=== PATIENT | male | born 1960 | race Caucasian/White ===

== ENCOUNTER → 2020-10-14 09:26 | Outpatient (BNVA) | payer OTHER, SELFPAY | PROVIDERS: Visit Provider Urology ==

== ENCOUNTER 2022-12-14 10:56 | Outpatient (AMB) | payer OTHER, SELFPAY ==
--- NOTE | 2022-12-14 11:21 | A.OFFVIS_ITS ---
Intake Intake Visit Reasons: 2YR US(set) Intake Note: Patient is present for Follow Up Urology Med: Sildenafil Antibiotic Allergy: Penicillins Blood Thinner: none Pharmacy: [facility] Allergies penicillin V Allergy (Unknown, Verified 12/14/22 11:22) diarrhea, hives walnuts Allergy (Unknown, Uncoded 12/14/22 11:22) hives and burning in mouth Medication List - Last Reconciled 12/14/22 by Keith Clement MD amlodipine 5 mg PO DAILY atorvastatin 20 mg PO DAILY irbesartan 300 mg PO DAILY tadalafil 5 mg PO DAILY 90 days HPI HPI Comments History of Present Illness Details Mateusz Welch is a very pleasant male. He is a patient of Dr. Hayward. He is seen for the following urologic conditions. - renal cyst - erectile dysfunction Renal imaging stable bilateral cysts Refilled tadalafil 12 month follow-up imaging Renal lesion: renal cyst ultrasound stable bilateral The renal mass was diagnosed 2013 - had initial ultrasound which showed a question of a complex cyst on the left kidney. Had a followup CT scan approximately 12-18 months ago that was reported as normal. Imaging included June [address] (computed tomography) scan of the abdomen/pelvis - small cyst on lower pole left kidney. Unchanged since 2013. Patient informed, recommend repeat ultrasound in approximately 5 years. The diagnosis was a complex cyst. Current symptoms include flank pain. Follow up imaging includes 10/05 , renal US - left 2 cm cyst, right 1 cm cyst, unchanged - 10/06 bilateral renal cyst n stable from prior imaging - 10/08 Severity of the symptoms that is mild. Erectile dysfunction: Stable with medications. Symptoms have been present for/since several months ago. Current symptoms include trouble getting an erection, trouble sustaining an erection. Severity of the symptoms is moderate. Frequency of symptoms is often. [facility] Medical History (Updated 10/14/20 @ 09:47 by Keith Clement MD) Erectile dysfunction HTN (hypertension) Renal cyst, acquired Surgical History (Updated 10/14/20 @ 09:28 by JOY Foster) History of hernia repair Review of Systems Const Denies chills and Denies fever(s) Card Reports no additional complaints and Denies syncope Resp Denies cough GI Denies abdominal pain and Denies heartburn Reports as per HPI and Denies change in libido Neuro Denies syncope Psych Denies change in libido Endo Denies change in libido Physical Exam Const General: cooperative, healthy appearing, comfortable and no acute distress Orientation/consciousness: patient oriented x3 HEENT Face and sinus: Yes normal facial exam Mouth: moist mucous membranes Neck Neck: Yes normal visual inspection, Yes full ROM and Yes trachea midline Chest Chest palpation & inspection: normal inspection of the chest Resp Effort & Inspection: normal respiratory effort, able to speak in complete sentences and no respiratory distress GI Inspection: Yes normal to inspection Back/Spine/Pelvis Cervical Spine: normal cervical lordosis Thoracic/Lumbar Spine: thoracic and lumbar spine normal to inspection Skin General skin exam: no rashes or lesions noted Neuro General: patient oriented x3, gait normal, tone normal and moves all extremities Extrem General: Yes normal to inspection and Yes capillary refill normal Assessment & Plan Assessment & Plan (1) Renal cyst, acquired: Code(s): N28.1 - Cyst of kidney, acquired (2) Erectile dysfunction: Code(s): N52.9 - Male erectile dysfunction, unspecified Plan Twelve month follow-up imaging Orders: Orders renal BI 09/28/22 N28.1 - Cyst of kidney, acquired US renal BI 364 Days N28.1 - Cyst of kidney, acquired Medications: New tadalafil 5 mg PO DAILY 90 tabs 1RF sexual activity 90 days N52.01 - Erectile dysfunction due to arterial insufficiency, N52.9 - Male erectile dysfunction, unspecified Discontinued sildenafil (pulm.hypertension) Discontinued Reason: Patient Completed Course 20 mg PO DAILY PRN 90 tabs 2RF sexual activity 90 days Patient Instructions: Imaging studies, laboratory and physical exam results were discussed and reviewed in detail. No major barriers to patient understanding were identified. An opportunity to ask questions regarding the treatment plan was provided. All questions were answered. The patient expressed understanding and agreement with the above treatment plan. The patient is aware they should contact our office by phone for worsening of their current condition or the appearance of new urologic symptoms. Compliance is encouraged with any medications and followup testing that is ordered. It is a privilege to participate in the urologic care of your patient. If you have any questions or concerns regarding treatment for the above conditions, or other urologic issues, please do not hesitate to contact me. The office telephone contact is [phone]. This note is constructed using voice recognition software. While every effort has been made to ensure accuracy lead material handler errors may have been included. Yours sincerely, Dr Keith Clement MD, [facility] - Urology Providers of Expert, Compassionate Care for the Genitourinary System Coding Level of Care Code Est Pt Level 4 (96605) Diagnoses Renal cyst, acquired N28.1 Erectile dysfunction N52.9
== END 2022-12-14 11:40 | disposition home or self-care (01) ==
PROVIDERS: Visit Provider Urology
DX: N28.1 Cyst of kidney, acquired (principal); N52.9 Male erectile dysfunction, unspecified
CPT/HCPCS: 99214

== ENCOUNTER → 2022-12-14 10:56 | Outpatient (BNVA) | payer OTHER, SELFPAY | PROVIDERS: Visit Provider Urology | DX: N28.1 Cyst of kidney, acquired (principal); N52.9 Male erectile dysfunction, unspecified | CPT/HCPCS: 99212 ==

== ENCOUNTER 2023-10-18 15:02 | Outpatient (AMB) | payer BC, SELFPAY ==
--- NOTE | 2023-10-18 15:12 | MHC.OFFVIS ---
Intake Visit Reasons: US Results Intake Note: Patient is Present for Follow Up Ultrasound Urology Medication: Tadalafil Antibiotic Allergies:Penicillin Blood Thinners:None Allergies penicillin V Allergy (Unknown, Verified 10/18/23 15:13) diarrhea, hives walnuts Allergy (Unknown, Uncoded 10/18/23 15:13) hives and burning in mouth HPI Comments Details: Mateusz Welch is a very pleasant male. He is a patient of Dr. Hayward. He is seen for the following urologic conditions. - renal cyst - erectile dysfunction Renal imaging stable bilateral cysts Refilled tadalafil 12 month follow-up imaging Renal lesion: renal cyst ultrasound stable bilateral The renal mass was diagnosed 2013 - had initial ultrasound which showed a question of a complex cyst on the left kidney. Had a followup CT scan approximately 12-18 months ago that was reported as normal. Imaging included June [address] (computed tomography) scan of the abdomen/pelvis - small cyst on lower pole left kidney. Unchanged since 2013. Patient informed, recommend repeat ultrasound in approximately 5 years. The diagnosis was a complex cyst. Current symptoms include flank pain. Follow up imaging includes 10/05 , renal US - left 2 cm cyst, right 1 cm cyst, unchanged - 10/06 bilateral renal cysts stable from prior imaging - 10/09 renal US bilateral cysts Severity of the symptoms that is mild. Erectile dysfunction: Stable with medications. Symptoms have been present for/since several months ago. Current symptoms include trouble getting an erection, trouble sustaining an erection. Severity of the symptoms is moderate. Frequency of symptoms is often. [facility] Medical History HTN (hypertension) Renal cyst, acquired Erectile dysfunction Surgical History History of hernia repair Review of Systems Const Denies chills and Denies fever(s) Card Reports no additional complaints and Denies syncope Resp Denies cough GI Denies abdominal pain and Denies heartburn Reports as per HPI and Denies change in libido Neuro Denies syncope Psych Denies change in libido Endo Denies change in libido Physical Exam Const General: cooperative, healthy appearing, comfortable and no acute distress Orientation/consciousness: patient oriented x3 HEENT Face and sinus: Yes normal facial exam Mouth: moist mucous membranes Neck Neck: Yes normal visual inspection, Yes full ROM and Yes trachea midline Chest Chest palpation & inspection: normal inspection of the chest Resp Effort & Inspection: normal respiratory effort, able to speak in complete sentences and no respiratory distress GI Inspection: Yes normal to inspection Back/Spine/Pelvis Cervical Spine: normal cervical lordosis Thoracic/Lumbar Spine: thoracic and lumbar spine normal to inspection Skin General skin exam: no rashes or lesions noted Neuro General: patient oriented x3, gait normal, tone normal and moves all extremities Extrem General: Yes normal to inspection and Yes capillary refill normal Assessment & Plan Assessment & Plan (1) Renal cyst, acquired: Code(s): N28.1 - Cyst of kidney, acquired Category: Medical (2) Erectile dysfunction: Code(s): N52.9 - Male erectile dysfunction, unspecified Category: Medical Plan Twelve month follow-up Orders: Orders US renal BI 12 Months N28.1 - Cyst of kidney, acquired Medications: New tadalafil On demand medication take 60 minutes before intended activity 20 mg PO ONCE 30 days PRN 30 tabs 0RF sexual activity N52.9 - Male erectile dysfunction, unspecified Patient Instructions: Imaging studies, laboratory and physical exam results were discussed and reviewed in detail. No major barriers to patient understanding were identified. An opportunity to ask questions regarding the treatment plan was provided. All questions were answered. The patient expressed understanding and agreement with the above treatment plan. The patient is aware they should contact our office by phone for worsening of their current condition or the appearance of new urologic symptoms. Compliance is encouraged with any medications and followup testing that is ordered. It is a privilege to participate in the urologic care of your patient. If you have any questions or concerns regarding treatment for the above conditions, or other urologic issues, please do not hesitate to contact me. The office telephone contact is [phone]. This note is constructed using voice recognition software. While every effort has been made to ensure accuracy toy assembler errors may have been included. Yours sincerely, Dr Keith Clement MD, [facility] - Urology Providers of Expert, Compassionate Care for the Genitourinary System Coding Level of Care Code Est Pt Level 4 (55891) Diagnoses Renal cyst, acquired N28.1 Erectile dysfunction N52.9
== END 2023-10-18 15:53 | disposition home or self-care (01) ==
LOC: HO.HUSH 15:02
PROVIDERS: Visit Provider Urology
DX: N28.1 Cyst of kidney, acquired (principal); N52.9 Male erectile dysfunction, unspecified
CPT/HCPCS: 99213

== ENCOUNTER → 2023-10-18 15:02 | Outpatient (BNVA) | payer BC, SELFPAY | PROVIDERS: Visit Provider Urology ==

== ENCOUNTER 2025-01-18 09:05 | Outpatient (AMB) | payer BC, SELFPAY ==
--- NOTE | 2025-01-18 09:09 | A.OFFVIS_ITS ---
Intake Visit Reasons: US F/U Intake Note: patient presents today for: follow up urology medications: tadalafil blood thinners: none US done: 11/30/24 License And Permit Specialist Required: No Accompanied by: Self / Same As Patient Allergies penicillin V Allergy (Unknown, Verified 01/18/25 09:09) diarrhea, hives walnuts Allergy (Unknown, Uncoded 01/18/25 09:09) hives and burning in mouth HPI Comments Details: Mateusz Welch is a very pleasant male. He is a patient of Dr. Hayward. He is seen for the following urologic conditions. - renal cyst - erectile dysfunction Renal imaging stable Has maintain stability for 10 years No need to follow yearly Primary care recently started tamsulosin This has been effective urination And discussed urinary parameters Follow p.r.n. Renal lesion: renal cyst ultrasound stable bilateral The renal mass was diagnosed 2013 - had initial ultrasound which showed a question of a complex cyst on the left kidney. Had a followup CT scan approximately 12-18 months ago that was reported as normal. Imaging included June [address] (computed tomography) scan of the abdomen/pelvis - small cyst on lower pole left kidney. Unchanged since 2013. Patient informed, recommend repeat ultrasound in approximately 5 years. The diagnosis was a complex cyst. Current symptoms include flank pain. Follow up imaging includes 10/05 , renal US - left 2 cm cyst, right 1 cm cyst, unchanged - 10/06 bilateral renal cysts stable from prior imaging - 10/09 renal US bilateral cysts Severity of the symptoms that is mild. Erectile dysfunction: Stable with medications. Symptoms have been present for/since several months ago. Current symptoms include trouble getting an erection, trouble sustaining an erection. Severity of the symptoms is moderate. Frequency of symptoms is often. [facility] Medical History HTN (hypertension) Renal cyst, acquired Erectile dysfunction Surgical History History of hernia repair Review of Systems Const Denies chills and Denies fever(s) Card Reports no additional complaints and Denies syncope Resp Denies cough GI Denies abdominal pain and Denies heartburn Reports as per HPI and Denies change in libido Neuro Denies syncope Psych Denies change in libido Endo Denies change in libido Physical Exam Const General: cooperative, healthy appearing, comfortable and no acute distress Orientation/consciousness: patient oriented x3 HEENT Face and sinus: Yes normal facial exam Mouth: moist mucous membranes Neck Neck: Yes normal visual inspection, Yes full ROM and Yes trachea midline Chest Chest palpation & inspection: normal inspection of the chest Resp Effort & Inspection: normal respiratory effort, able to speak in complete sen tences and no respiratory distress GI Inspection: Yes normal to inspection Back/Spine/Pelvis Cervical Spine: normal cervical lordosis Thoracic/Lumbar Spine: thoracic and lumbar spine normal to inspection Skin General skin exam: no rashes or lesions noted Neuro General: patient oriented x3, gait normal, tone normal and moves all extremities Extrem General: Yes normal to inspection and Yes capillary refill normal Assessment & Plan Assessment & Plan (1) Erectile dysfunction: Code(s): N52.9 - Male erectile dysfunction, unspecified Category: Medical (2) Renal cyst, acquired: Code(s): N28.1 - Cyst of kidney, acquired Category: Medical Plan P.r.n. follow-up Patient Instructions: This note is constructed using voice recognition software. While every effort has been made to ensure accuracy roll reclaimer errors may have been included. Imaging studies, laboratory and physical exam results were discussed and reviewed in detail. No major barriers to patient understanding were identified. An opportunity to ask questions regarding the treatment plan was provided. All questions were answered. The patient expressed understanding and agreement with the above treatment plan. The patient is aware they should contact our office by phone for worsening of their current condition or the appearance of new urologic symptoms. Compliance is encouraged with any medications and followup testing that is ordered. It is a privilege to participate in the urologic care of your patient. If you have any questions or concerns regarding treatment for the above conditions, or other urologic issues, please do not hesitate to contact me. The office telephone contact is [phone]. Sincerely, Dr Keith Clement MD, [facility] - Urology Compassionate Specialist Care for the Genitourinary System Coding Level of Care Code Est Pt Level 4 (71456) Complex EM visit Add On G2211 Diagnoses Erectile dysfunction N52.9 Renal cyst, acquired N28.1
--- OUTSIDE RECORDS SUMMARY | 2025-01-18 09:32 | XMS_ITS | Clinical Summary ---
Author Organization [place] [address] [facility] Address [address] [place] [phone] Phone Care Team Providers Care Sales Property Manager Name Role Phone MayeFrancesca carreon Primary Care Provider [phone] Allergies No known active allergies Medications fexofenadine HCl (FEXOFENADINE ORAL) Take by mouth daily. Active methylcellulose oral powder Take by mouth 1 (one) time each day. Active zinc gluconate 50 mg tablet Take 1 tablet (50 mg total) by mouth 1 (one) time each day. Active atorvastatin (LIPITOR) 10 mg tablet TAKE 1 TABLET BY MOUTH 1 TIME EACH DAY. 90 tablet 1 5 Active Additional Information Patient not taking.Reported on 11/06/2024 omeprazole (PriLOSEC) [address] capsule TAKE 1 CAPSULE BY MOUTH 1 TIME EACH DAY. 90 capsule 5 Active amLODIPine (NORVASC) 5 mg tablet Take 1 tablet (5 mg total) by mouth 1 (one) time each day. 90 tablet 1 5 Active irbesartan (AVAPRO) 300 mg tablet Take 1 tablet (300 mg total) by mouth 1 (one) time each day. 90 each 1 5 04/03/20 25 Active tamsulosin (FLOMAX) 0.4 mg 24 hr capsule Take 1 capsule (0.4 mg total) by mouth 1 (one) time each day. Capsules should be taken 30 minutes following the same meal each day. 90 capsule 1 5 Active sildenafil (REVATIO) 20 mg tabletIndication s:Erectile dysfunction, unspecified erectile dysfunction type Take 1 tablet (20 mg total) by mouth 1 (one) time each day if needed (prior to sexual intercourse). 10 tablet 2 5 10/01/19 Active Active Problems Problem Noted Date Diagnosed Date GERD (gastroesophageal reflux disease) Hypertension 02/13/2024 Prediabetes 07/19/2023 Pure hypercholesterolemia 04/14/2022 Erectile dysfunction 04/13/2022 Overweight (BMI 25.0-29.9) 04/13/2022 Tubular adenoma of colon 04/13/2022 Encounters Date Type Department Care Team Description 11/30/2024 7:57 AM EDT - 11/30/2024 11:59 PM EDT Hospital Encounter [facility] Ultrasound [address] [place] [id number] Cyst of kidney, acquired Discharge Disposition: Home or Self Care 11/06/2024 8:30 AM EDT Consult Vascular Surgery - [place] [address] [place] [phone] AlexisAnastacia Haider MD Atherosclerosis from Last 3 Months Immunizations Immunization Administration Dates Next Due Pfizer SARS-CoV-2 COVID-19, mRNA, LNP-S, preservative free 07/23/2021,03/25/2021 Tdap Tetanus diptheria acell ular pertussis (Boostrix; Adacel) 7yo and older 04/14/2022 Surgical History Surgery Date Site/Laterality Comments OTHER SURGICAL HISTORY PROCEDURE: IN RPR 1ST INGUN HRNA AGE 3 YRS/> REDUCIBLE Medical History Medical History Date Comments Essential (primary) hypertension DX:Essential (primary) hypertension Prediabetes 07/19/2023 DX:Prediabetes Family History Medical History Relation Name Comments Hypertension Father Other: Other Father Breast cancer Mother DM, Osteoporos is Diabetes Mother Breast cancer Sister Relation Name Status Comments Father Alive Mother Alive Sister Social History Tobacco Use Types Packs/Day Years Used Date Smoking Tobacco: Some Days Cigarettes 0.5 44.8 Started: 04/18/1980 Smokeless Tobacco: Current Tobacco Cessation:Ready to Q uit: Not Asked; Counseling Given: Not Answered Alcohol Use Standard Drinks/Week Comments Yes 0 (1 standard drink = 0.6 oz pur e alcohol) Sex and Gender Information Value Date Recorded Sex Assigned at Male 06/29/2024 11:33 AM EDT Legal Sex Male 5:53 AM EST Gender Identity Male 06/29/2024 11:33 AM EDT Sexual Orientation Straight 06/29/2024 11 :33 AM EDT Obstetrics History Last Filed Vital Signs Vital Sign Reading Time Taken Comments Blood Pressure 150/76 11/06/2024 8:35 AM EDT Pulse 54 11/06/2024 8:35 AM EDT Temperature - - Respiratory Rate 16 06/08/2024 8:47 AM EST Oxygen Saturation 98% 08/15/2024 9:15 AM EDT Inhaled Oxygen Concentration - - Weight 88.9 kg (196 lb) 11/06/2024 8:35 AM EDT Height 177.8 cm (5' 10 ) 11/06/2024 8:35 AM EDT Body Mass Index 28.12 11/06/2024 8:35 AM EDT Plan of Treatment Upcoming Encounters Date Type Department Care Team (Late st Contact Info) Description 04/22/2025 8:30 AM EST [facility] [address] [place] [address] Tomer Hernandez PA [address] [place] [phone] 07/15/2025 8:15 AM EDT [facility] [address] [place] [address] Health Maintenance Due Date Last Done Comments Pneumococcal Vaccine: 50+ Years (1 of 2 - PCV) 1977 Zoster Vaccines (1 of 2) 2008 Abdominal Aortic Aneurysm (AAA) Screen 03/28/2022 Lung Cancer Screening (Low Dose CT) 03/28/2022 Medicare Annual Wellness Visit 03/28/2022 Social Influencers of Health Screening 03/28/2022 Depression Screening 04/18/2024 07/19/2023 Falls Risk Assessment 07/18/2024 07/19/2023 COVID-19 Vaccine ( season) 2024 12/23/2021, 07/23/2021, 03/25/2021, Additional history exists Influenza Vaccine (#1) 2024 Hypertension/CHF/CAD Annual BMP Blood Test 10/08/2025 10/08/2024, 06/08/2024, 03/22/2024, Additional history exists Colorectal Cancer Screening: Colonoscopy 11/30/2026 11/30/2021 Cholesterol Screening (Lipid Panel) 10/08/2029 10/08/2024, 10/14/2023, 10/14/2023 DTaP,Tdap,and Td Vaccines (2 - Td or Tdap) 04/14/2032 04/14/2022 RSV Immunization Adult Patients (1 - 1-dose 75+ series) 2033 Hepatitis C Screening Completed 12/23/2021 HIB Vaccines Aged Out No longer eligi ble based on patient's age to complete this topic HPV Vaccines Aged Out No longer eligi ble based on patient's age to complete this topic Hepatitis A Vaccines Aged Out No long er eligible based on patient's age to complete this topic Hepatitis B Vaccines Aged Out No long er eligible based on patient's age to complete this topic IPV Vaccines Aged Out No longer eligi ble based on patient's age to complete this topic MMR Vaccines Aged Out No longer eligi ble based on patient's age to complete this topic Meningococcal ACWY Vaccine Aged Out N o longer eligible based on patient's age to complete this topic Meningococcal B Vaccine Aged Out No l onger eligible based on patient's age to complete this topic RSV Immunization Patients Under 20 months Aged Out No longer eligible based on patient's age to complete this topic Varicella Vaccines Aged Out No longer eligible based on patient's age to complete this topic Procedures Procedure Name Priority Date/Time Associated Diagnosis Comments US RETROPERITONEAL COMPLETE Routine 11/30/2024 8:24 AM EDT Cyst of kidney, acquired COMPREHENSIVE METABOLIC PANEL Routine 10/08/2024 9:11 AM EDT Primary hypertension Pure hypercholesterolemia LIPID PANEL WITH REFLEX TO DIRECT LDL Routine 10/08/2024 9:11 AM EDT Primary hypertension Pure hypercholesterolemia HM DEPRESSION SCREENING Routine 07/19/2023 FALLS RISK ASSESSMENT Routine 07/19/2023 HEPATITIS C SCREENING Routine 12/23/2021 COLONOSCOPY Routine 11/30/2021 from Last 3 Months or Most Recently Relevant to Health Maintenance Results * US Retroperitoneal Complete (11/30/2024 8:24 AM EDT) Anatomical Region Laterality Modality Body Ultrasound 12/04/2024 9:46 AM EDT Impressions 12/04/2024 9:57 AM EDT No evidence of upper tract obstruction. No suspicious renal mass. No shadowing calculus No short interval change in cysts in each kidney. No suspicious features. These have developed or increased in size when compared to CT performed without contrast 05/22/15. -------- FINAL REPORT -------- Dictated By: Chaim Herrera Dictated Date: 12/04/2024 09:46 ET Assigned Physician: Chaim Herrera Reviewed and Electronically Signed By: Chaim Herrera Signed Date: 12/04/2024 09:57 ET Workstation ID: [id number] Transcribed By: Self Edit Transcribed Date: 12/04/2024 09:46 ET Narrative 12/04/2024 9:57 AM EDT EXAM: RENAL and BLADDER ULTRASOUND INDICATION: Renal cysts. COMPARISON: Portions of previous ultrasound 09/29/23 FINDINGS: ULTRASOUND OF THE KIDNEYS AND BLADDER. KIDNEYS: RIGHT: Size: 10.7 cm in greatest length Collecting system: There is no dilation of the intrarenal collecting system Contour: The renal contour is smooth Cortical thickness: Normal uniform cortical thickness Cortical echogenicity: The cortical echogenicity is within normal limits Masses: There are no suspicious renal masses. There is a sharply circumscribed 1.0 cm anechoic mass with a sharp back wall and minimal posterior enhancement in the posterior lower right kidney with no suspicious features. This was present on previous ultrasound. This is not detectable on CT 05/22/15. Shadowing calculi: There are no shadowing calculi demonstrated Other: No other significant findings LEFT: Size: 4.1 cm in greatest length Collecting system: There is no dilation of the intrarenal collecting system Contour: There is an exophytic round anechoic mass with sharp back wall and posterior enhancement deforming the contour of the anterior lower left kidney. Cortical thickness: Normal uniform cortical thickness Cortical echogenicity: The cortical echogenicity is within normal limits Masses: There are no suspicious renal masses. The exophytic anechoic mass with sharp back wall and posterior enhancement deforms the contour of the anterior lower left kidney and measures 2.[address] 07/05/24-[address] 05/22/15-less than 0.5 cm Shadowing calculi: There are no shadowing calculi demonstrated Other: No other significant findings BLADDER: No suspicious abnormality demonstrated. The upper aspect of the prostate is not well demonstrated. Color mapping demonstrates bilateral ureteral jets Pre-void volume: Not performed Post void volume: Not performed Procedure Note Chaim Herrera MD - 12/04/2024 EXAM: RENAL and BLADDER ULTRASOUND INDICATION: Renal cysts. COMPARISON: Portions of previous ultrasound 09/29/23 FINDINGS: ULTRASOUND OF THE KIDNEYS AND BLADDER. KIDNEYS: RIGHT: Size: 10.7 cm in greatest length Collecting system: There is no dilation of the intrarenal collectingsystem Contour: The renal contour is smooth Cortical thickness: Normal uniform cortical thickness Cortical echogenicity: The cortical echogenicity is within normallimits Masses: There are no suspicious renal masses. There is a sharplycircumscribed 1.0 cm anechoic mass with a sharp back wall and minimalposterior enhancement in the posterior lower right kidney with nosuspicious features. This was present on previous ultrasound. This is notdetectable on CT 05/22/15. Shadowing calculi: There are no shadowing calculi demonstrated Other: No other significant findings LEFT: Size: 4.1 cm in greatest length Collecting system: There is no dilation of the intrarenal collectingsystem Contour: There is an exophytic round anechoic mass with sharp back walland posterior enhancement deforming the contour of the anterior lower leftkidney. Cortical thickness: Normal uniform cortical thickness Cortical echogenicity: The cortical echogenicity is within normallimits Masses: There are no suspicious renal masses. The exophytic anechoicmass with sharp back wall and posterior enhancement deforms the contour ofthe anterior lower left kidney and measures 2.[address] 07/05/24-[address] 05/22/15-less than 0.5 cm Shadowing calculi: There are no shadowing calculi demonstrated Other: No other significant findings BLADDER: No suspicious abnormality demonstrated. The upper aspect of theprostate is not well demonstrated. Color mapping demonstrates bilateral ureteral jets Pre-void volume: Not performed Post void volume: Not performed IMPRESSION: No evidence of upper tract obstruction. No suspicious renal mass. Noshadowing calculus No short interval change in cysts in each kidney. No suspiciousfeatures. These have developed or increased in size when compared to CT performedwithout contrast 05/22/15. -------- FINAL REPORT -------- Dictated By: Chaim Herrera Dictated Date: 12/04/2024 09:46 ET Assigned Physician: Chaim Herrera Reviewed and Electronically Signed By: Chaim Herrera Signed Date: 12/04/2024 09:57 ET Workstation ID: [id number] Transcribed By: Self Edit Transcribed Date: 12/04/2024 09:46 ET us Keith Clement MD IM US PROCEDURES Final Resul t * Lipid panel with reflex to direct LDL (10/08/2024 9:11 AM EDT) Cholesterol 157 0 - 200 mg/dL LAB CHEMISTRY METHOD 10/08/2024 6:08 PM EDT [facility] Triglycerides 110 0 - 150 mg/dL LAB CHEMISTRY METHOD 10/08/2024 6:08 PM EDT [facility] HDL 47 >=40 mg/dL LAB CHEMISTRY METHOD 10/08/2024 6:08 PM EDT [facility] LDL Calculated 88 0 - 100 mg/dL LAB CHEMISTRY METHOD 10/08/2024 6:08 PM T [facility] VLDL Cholesterol Lucas 22 mg/dL LAB CHEMISTRY METHOD 10/08/2024 6:08 PM EDT [facility] Non HDL Chol. (LDL+VLDL) 110 <145 mg/dL LAB CHEMISTRY METHOD 10/08/2024 6:[address] [facility] Chol/HDL Ratio 3.3 0.0 - 4.4 LAB CHEMISTRY METHOD 10/08/2024 6:[address] [facility] Blood Venous blood specimen / Unknown Venipuncture / Unknown 10/08/2024 9:11 AM EDT 10/08/2024 9:11 AM EDT Tomer KONG LAB BLOOD ORDERABLES Fi nal Result [facility] [address] [place] [address], * (ABNORMAL) Comprehensive metabolic panel (10/08/2024 9:11 AM EDT) Sodium 141 133 - 145 mmol/L LAB CHEMISTRY METHOD 10/08/2024 6:[address] [facility] Potassium 4.1 3.5 - 5.5 mmol/L LAB CHEMISTRY METHOD 10/08/2024 6:[address] [facility] Chloride 110 96 - 110 mmol/L LAB CHEMISTRY METHOD 10/08/2024 6:[address] [facility] CO2 24 21 - 32 mmol/L LAB CHEMISTRY METHOD 10/08/2024 6:[address] [facility] Anion Gap 7 3 - 11 LAB CHEMISTRY METHOD 10/08/2024 6:[address] [facility] Glucose 102(H) 70 - 100 mg/dL LAB CHEMISTRY METHOD 10/08/2024 6:[address] [facility] BUN 13 5 - 25 mg/dL LAB CHEMISTRY METHOD 10/08/2024 6:[address] [facility] Creatinine 0.86 0.70 - 1.30 mg/dL LAB CHEMISTRY METHOD 10/08/2024 6:[address] [facility] eGFR 95 >=60 mL/min/1. 73m2 LAB CHEMISTRY METHOD 10/08/2024 6:[address] [facility] Comment:Calculation based on the Chronic Kidney Disease Epidemiology Collaboration (CKD-EPI) equation refit without adjustment for race. BUN/Creatinine Ratio 15.1 LAB CHEMISTRY METHOD 10/08/2024 6:[address] [facility] Calcium 8.6 8.5 - 10.5 mg/dL LAB CHEMISTRY METHOD 10/08/2024 6:[address] [facility] AST (SGOT) 15 10 - 42 unit/L LAB CHEMISTRY METHOD 10/08/2024 6:[address] [facility] ALT (SGPT) 28 10 - 60 unit/L LAB CHEMISTRY METHOD 10/08/2024 6:[address] [facility] Alkaline Phosphatase 64 42 - 121 unit/L LAB CHEMISTRY METHOD 10/08/2024 6:[address] [facility] Total Protein 7.2 6.0 - 8.0 g/dL LAB CHEMISTRY METHOD 10/08/2024 6:[address] [facility] Albumin 3.7 3.2 - 5.0 g/dL LAB CHEMISTRY METHOD 10/08/2024 6:[address] [facility] Total Bilirubin 0.5 0.0 - 1.4 mg/dL LAB CHEMISTRY METHOD 10/08/2024 6:[address] [facility] Blood Venous blood specimen / Unknown Venipuncture / Unknown 10/08/2024 9:11 AM EDT 10/08/2024 9:11 AM EDT us Tomer KONG LAB BLOOD ORDERABLES Fi nal Result [facility] [address] [place] [address], * Falls Risk Assessment (07/19/2023) Falls Risk Assessment abstracted Historical Provider MD HEALTH MAINTENANCE Final Result * Depression Screening (07/19/2023) Depression Screening abstracted Historical Provider MD HEALTH MAINTENANCE Final Result * Hepatitis C Screening (12/23/2021) Hepatitis C Screening abstracted Historical Provider MD HEALTH MAINTENANCE Final Result * Colonoscopy (11/30/2021) Colonoscopy no interpretation , abstracted Anatomical Region Laterality Modality Other Historical Provider HEALTH MAINTENANCE Final Result from Last 3 Months or Most Recently Relevant to Health Maintenance Insurance [employer] ([facility]) MEDICARE ADVANTAGE Care Teams Sales Property Manager Relationship Specialty Start Date End Date Francesca Garay DO [address] [place] [address] PCP - General Internal Medicine 02/10/24
== END 2025-01-18 09:53 | disposition home or self-care (01) ==
LOC: HO.HUSH 09:06
PROVIDERS: Visit Provider Urology
DX: N52.9 Male erectile dysfunction, unspecified (principal); N28.1 Cyst of kidney, acquired
CPT/HCPCS: 99214